=== PATIENT | female | born 1990 | race American Indian/Alaskan Native ===

== ENCOUNTER 2016-07-03 22:47 | Emergency (ER) | payer OTHER ==
[2016-07-04 00:59] LABS: Bilirubin,Urine NEG (Negative); Blood,Urine NEG (Negative); Ketones,Urine NEG (Negative); Leukocyte Esterase,Urine SM (Negative); Mucus,Urine FEW /HPF; Nitrite,Urine NEG (Negative); Protein,Urine <15 mg/dL mg/dL (Negative); Urobilinogen,Urine < 2.0 mg/dL (<2.0)
[2016-07-04] MEDS ORDERED: TYLENOL PO ONE (02:57)
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
[2016-07-04 12:13] VITALS: BP 112/90
== END 2016-07-04 12:05 | disposition home or self-care (01) ==
LOC: ED 22:47
DX: S06.0X1A Concussion with loss of consciousness of 30 minutes or less, initial encounter (principal); S60.222A Contusion of left hand, initial encounter; V43.52XA Car driver injured in collision with other type car in traffic accident, initial encounter; Y93.89 Activity, other specified; Y99.9 Unspecified external cause status; Y92.410 Unspecified street and highway as the place of occurrence of the external cause
CPT/HCPCS: 70450; 81001; 81025